=== PATIENT | female | born 1955 | race Caucasian/White ===

== ENCOUNTER 2023-04-22 06:47 | Day surgery (SDC) | payer MEDICARE, OTHER ==
[2023-04-22] MEDS ORDERED: fentaNYL 100 MCG/2 ML SDV IV ONE (06:48)
[2023-04-22] MEDS ORDERED: Midazolam 1 MG/ML 2 ML SDV IV ONE (06:48)
[2023-04-22] MEDS: Sodium Chloride 0.9% 10 ML Syringe FLUSH PRN (07:44)
[2023-04-22] MEDS: Lactated Ringers 1,000 ML IV PRN (07:44)
[2023-04-22] MEDS: acetaZOLAMIDE 500 MG Cap.ER PO ONE (09:20)
[2023-04-22 09:27] VITALS: PULSE 59
[2023-04-22 09:28] VITALS: BP 100/59
== END 2023-04-22 09:41 | disposition home or self-care (01) ==
LOC: FB.SDS 06:47
PROVIDERS: ATTEND Ophthalmology
DX: H26.9 Unspecified cataract (principal); H40.1111 Primary open-angle glaucoma, right eye, mild stage; E78.5 Hyperlipidemia, unspecified; I10 Essential (primary) hypertension; J45.40 Moderate persistent asthma, uncomplicated; Z79.82 Long term (current) use of aspirin; Z79.899 Other long term (current) drug therapy; Z88.0 Allergy status to penicillin; Z88.2 Allergy status to sulfonamides; Z91.040 Latex allergy status; Z87.891 Personal history of nicotine dependence
CPT/HCPCS: 00142; A9270-GY; C1783; J2250; J3010; J3490; J7120; V2632

== ENCOUNTER 2023-05-13 06:44 | Day surgery (SDC) | payer MEDICARE, OTHER ==
[2023-05-13] MEDS ORDERED: Midazolam 1 MG/ML 2 ML SDV IV ONE (06:45)
[2023-05-13] MEDS ORDERED: Lactated Ringers 1,000 ML IV PRN (06:45)
[2023-05-13] MEDS ORDERED: fentaNYL 100 MCG/2 ML SDV IV ONE (06:45)
[2023-05-13] MEDS ORDERED: Sodium Chloride 0.9% 10 ML Syringe FLUSH PRN (06:45)
[2023-05-13] MEDS ORDERED: acetaZOLAMIDE 500 MG Cap.ER PO ONE (09:00)
[2023-05-13 13:54] VITALS: BP 110/57; PULSE 56
== END 2023-05-13 09:25 | disposition home or self-care (01) ==
LOC: FB.SDS 06:44
PROVIDERS: ATTEND Ophthalmology
DX: H26.9 Unspecified cataract (principal); H40.1121 Primary open-angle glaucoma, left eye, mild stage; I10 Essential (primary) hypertension; J45.40 Moderate persistent asthma, uncomplicated; E78.5 Hyperlipidemia, unspecified; Z87.891 Personal history of nicotine dependence; Z79.82 Long term (current) use of aspirin; Z79.899 Other long term (current) drug therapy; Z91.040 Latex allergy status; Z88.2 Allergy status to sulfonamides; Z88.0 Allergy status to penicillin
CPT/HCPCS: A9270-GY; C1783; J2250; J3010; J3490; J7120; V2632